=== PATIENT | male | born 1980 | race Two or more races ===

== ENCOUNTER 2017-04-06 14:39 | Emergency (ER) | payer SELFPAY ==
[~2017-04-06] VITALS: Ht 149.9 cm; Wt 59.0 kg
[2017-04-06 16:04] VITALS: BP 125/81
[2017-04-06 16:46] VITALS: BP 125/81
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
== END 2017-04-06 17:00 | disposition home or self-care (01) ==
LOC: EMR 16:42
DX: F10.129 Alcohol abuse with intoxication, unspecified (principal); S00.33XA Contusion of nose, initial encounter; Y09 Assault by unspecified means; Y92.9 Unspecified place or not applicable
CPT/HCPCS: 99282